=== PATIENT | male | born 1950 | race Caucasian/White ===

== ENCOUNTER 2021-04-03 00:08 | Emergency (ER) | payer MEDICARE, OTHER ==
[~2021-04-03] VITALS: Ht 182.9 cm; Wt 102.1 kg
--- NOTE | 2021-04-03 01:00 | NUR ---
Patient walked into ER c/o lower abdominal with x1 epsiode of vomiting and hematuria that started about 2hrs [employer]. Denies CP,SOB at this time.
[2021-04-03] MEDS ORDERED: HYDROMORPHONE 1 MG/1 ML DISP.SYRIN IV ONE ×2 (01:15→02:15)
[2021-04-03] MEDS ORDERED: ONDANSETRON 4 MG/2 ML VIAL IV ONE (01:15)
[2021-04-03 01:30] LABS: CREATININE 1.5 mg/dL (0.6-1.3); HEMATOCRIT 44.2 % (36.7-47.1); MEAN CORPUSCULAR VOLUME 89.5 fL (73.0-96.2); PLATELET COUNT (AUTO) 200 K/uL (152-348); POTASSIUM 4.2 mmol/L (3.5-5.1)
[2021-04-03 01:36] LABS: BILIRUBIN,DIRECT 0.2 mg/dL (0.0-0.2); BILIRUBIN,TOTAL 0.7 mg/dL (0.2-1.0); TOTAL PROTEIN, SERUM 6.9 g/dL (6.4-8.2)
[2021-04-03] MEDS ORDERED: ONDANSETRON 4 MG/2 ML VIAL ONE (01:38)
[2021-04-03] MEDS ORDERED: HYDROMORPHONE 1 MG/1 ML DISP.SYRIN ONE ×2 (01:38→02:26)
[2021-04-03] MEDS ORDERED: IV LACTATED RINGERS SOLUTION 1,000 ML IV ONE (02:00)
--- NOTE | 2021-04-03 03:18 | NUR ---
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
[2021-04-03 03:55] LABS: *BILIRUBIN,URIN NEGATIVE (NEGATIVE); *BLOOD, URINE 3+ (NEGATIVE); *COLOR,URINE YELLOW (YELLOW); *KETONES,URINE 1+ (NEGATIVE); *UROBILINOGEN,URINE 0.2 E.U./dl (NORMAL); LEUKOCYTE ESTERASE ,URINE NEGATIVE (NEGATIVE); NITRITE, URINE NEGATIVE (NEGATIVE); PH,URINE 5.5 (5.0-8.0); UGLUCOSE NEGATIVE (NEGATIVE)
[2021-04-03] MEDS ORDERED: HYDR-4209 PO (04:10)
[2021-04-03] MEDS ORDERED: ONDA4TAB5 PO (04:10)
[2021-04-03 04:21] LABS: *CLARITY,URINE CLEARH (CLEAR); BACTERIA,URINE NONE SEEN /HPF (NONE SEEN); RBC,URINE TNTC /HPF (0-3); SQUAMOUS EPITHELIAL CELL,UR NONE SEEN /HPF (NONE SEEN); WBC,URINE 0-3 /HPF (0-3)
--- NOTE | 2021-04-03 04:30 | NUR ---
IV removed. Catheter intact and site benign. Pressure and 4x4 gauze applied to site. No bleeding noted.
--- NOTE | 2021-04-03 04:36 | NUR ---
Patient discharged to home in stable condition with taking patient home. Written and verbal after care instructions given. Patient verbalizes understanding of instructions. Stressed follow up or return to ER for worsening s/s.
[2021-04-03 04:37] VITALS: BP 142/82
== END 2021-04-03 04:37 | disposition home or self-care (01) ==
LOC: ER 00:19
DX: R10.30 Lower abdominal pain, unspecified (principal); K80.20 Calculus of gallbladder without cholecystitis without obstruction; N20.0 Calculus of kidney; J98.11 Atelectasis; I49.3 Ventricular premature depolarization; Z91.013 Allergy to seafood; R31.29 Other microscopic hematuria; R03.0 Elevated blood-pressure reading, without diagnosis of hypertension; Z90.79 Acquired absence of other genital organ(s)
CPT/HCPCS: 36415; 71045; 74176; 76705; 80048; 80076; 81001; 83690; 84484; 85025; 85730; 93005; 96361; 96374; 96375; 96376; 99285; J1170 ×2; J2405; J7120; 70030-TC; A4663

== ENCOUNTER 2021-04-04 21:26 | Emergency (ER) | payer MEDICARE, OTHER ==
[~2021-04-04] VITALS: Ht 182.9 cm; Wt 102.1 kg
[~2021-04-04 21:26] MED LIST: HYDR-4209 PO; ONDA4TAB5 PO
[2021-04-04] MEDS ORDERED: ONDANSETRON 4 MG/2 ML VIAL IV ONE (22:00)
[2021-04-04] MEDS ORDERED: HYDROMORPHONE 1 MG/1 ML DISP.SYRIN IV ONE (22:00)
[2021-04-04] MEDS ORDERED: KETOROLAC TROMETHAMINE 30 MG INJ IVP ONE (22:00)
[2021-04-04 22:09] LABS: HEMATOCRIT 42.4 % (36.7-47.1); MEAN CORPUSCULAR HEMOGLOBIN 30.9 uug (23.8-33.4); MEAN CORPUSCULAR VOLUME 89.9 fL (73.0-96.2); PLATELET COUNT (AUTO) 178 K/uL (152-348)
[2021-04-04] MEDS ORDERED: ONDANSETRON 4 MG/2 ML VIAL ONE (22:16)
[2021-04-04] MEDS ORDERED: HYDROMORPHONE 1 MG/1 ML DISP.SYRIN ONE (22:16)
[2021-04-04] MEDS ORDERED: KETOROLAC TROMETHAMINE 30 MG INJ ONE (22:16)
--- NOTE | 2021-04-04 22:30 | NUR ---
Patient presents to ED from home for abdominal pain + flank pain + fever (99.9). A&Ox4. Able to make needs known. Normal affect. PERRLA. No signs of trauma. No SI/HI/AH/VH. Saturations >94% on room air. No SOB, no labored breathing, no retractions. Lungs clear to auscultation bilaterally. No signs of cyanosis. Regular rate & rhythm. No murmurs, no palpitations, no chest pain. Well perfused skin. Afebrile. GI/: No V/D but does complain of nausea + constipation prior to taking milk of magnesia at home. Abdomen is distended. Soft + non-tender. Normoactive bowel sounds. No guarding.
--- NOTE | 2021-04-04 23:00 | NUR ---
Patient resting in bed. No distress. Family at bedside.
[2021-04-04 23:19] VITALS: BP 122/66
== END 2021-04-04 23:10 | disposition home or self-care (01) ==
LOC: ER 21:28
DX: R10.32 Left lower quadrant pain (principal); N20.1 Calculus of ureter; Z95.5 Presence of coronary angioplasty implant and graft; Z90.79 Acquired absence of other genital organ(s)
CPT/HCPCS: 85025; 96374; 96375; 99284; J1170; J1885; J2405; A4663; J7030